=== PATIENT | male | born 1955 | race Caucasian/White ===

== ENCOUNTER → 2021-09-04 | Outpatient (CLI) | payer OTHER | LOC: EXRD 13:40 | DX: M54.50 Low back pain, unspecified (principal); M25.552 Pain in left hip; R93.7 Abnormal findings on diagnostic imaging of other parts of musculoskeletal system; M53.3 Sacrococcygeal disorders, not elsewhere classified | CPT/HCPCS: 72202; 73502 ==

== ENCOUNTER → 2021-10-11 | Outpatient (CLI) | payer OTHER | LOC: EXRD 15:26 | DX: M54.2 Cervicalgia (principal); Z87.39 Personal history of other diseases of the musculoskeletal system and connective tissue; M43.8X2 Other specified deforming dorsopathies, cervical region | CPT/HCPCS: 72040; 72070 ==